=== PATIENT | female | born 1925 | race Caucasian/White ===

== ENCOUNTER 2016-09-29 16:18 | Inpatient (IN) | payer MEDICARE, OTHER ==
[2016-09-29] MEDS ORDERED: Sodium Chloride 0.9% 10 ML Syringe FLUSH PRN (17:18)
--- NOTE | 2016-09-29 17:22 | EDM.PDOC ---
ED HPI GENERAL MEDICAL PROBLEM - General Chief Complaint: Genitourinary Problem Stated Complaint: FALL Time Seen by Provider: 09/29/16 17:22 Source of Information: Reports: Family History Limitations: Reports: No Limitations - History of Present Illness INITIAL COMMENTS - FREE TEXT/NARRATIVE: 89-year-old female presents via private vehicle for increased weakness and confusion. Patient is a resident of [facility]. Reportedly she fell 3 times today. Once last night and 2 falls earlier today. Reportedly 2 of the falls were unwitnessed. Supposedly she fell onto her knees and then onto her palms after one of the falls. Patient is pleasantly demented and is not able to provide much history. She is currently denying any pain. She denies any chest pain, shortness of breath, abdominal pain, nausea, vomiting or diarrhea. The patient's daughter is present and confirms she has not been complaining of any pain. Complains of pain only to the bilateral knees which is chronic due to arthritis. Patient is a DO NOT RESUSCITATE, DO NOT INTUBATE. - Related Data Allergies Allergy/AdvReac Type Severity Reaction Status Date / Time Penicillins Allergy Other Verified 04/22/16 14:56 Home Meds: Home Meds Acetaminophen [Tylenol Extra Strength] 500 mg PO Q6HR PRN 09/29/16 [History] Alendronate [Fosamax] 70 mg PO Q7D@0600 09/29/16 [History] Aspirin [Halfprin] 81 mg PO BRK 09/29/16 [History] Calcium Carbonate/Vitamin D3 [Calcium 600 + Vit D 400 Softgl] 1 tab PO DAILY [History] Carvedilol 6.25 mg PO BID 09/29/16 [History] Clopidogrel [Plavix] 75 mg PO DAILY 09/29/16 [History] Docusate Sodium 100 mg PO BID 09/29/16 [History] Losartan [Cozaar] 100 mg PO DAILY 09/29/16 [History] Multivitamin [Multi-Vitamin Daily] 1 tab PO DAILY 09/29/16 [History] Omeprazole 20 mg PO DAILY 09/29/16 [History] Pravastatin [Pravachol] 40 mg PO DAILY 09/29/16 [History] Ranitidine HCl [Zantac 75] 75 mg PO BID PRN 09/29/16 [History] tiZANidine HCl [Tizanidine HCl] 4 mg PO Q8HR PRN 09/29/16 [History] traMADol HCl [Tramadol HCl] 50 mg PO Q6H PRN 09/29/16 [History] Past Medical History Cardiovascular History: Reports: High Cholesterol, Hypertension Gastrointestinal History: Reports: Chronic Constipation, GERD Musculoskeletal History: Reports: Osteoporosis, Other (See Below) Other Musculoskeletal History: sciatic pain on left and right sides Neurological History: Reports: CVA, TIA - Past Surgical History Female Surgical History: Reports: Hysterectomy Social & Family History - Tobacco Use Smoking Status *Q: Former Smoker Used Tobacco, but Quit: Yes Month Tobacco Last Used: 30 yrs - Caffeine Use Caffeine Use: Reports: Coffee - Recreational Drug Use Recreational Drug Use: No - Living Situation & Occupation Living situation: Reports: Extended Care Facility Occupation: Retired ED ROS GENERAL - Review of Systems Review Of Systems: See Below Constitutional: Reports: Weakness, Other (falls x 3 last 24 hours). Denies: Fever Respiratory: Denies: Shortness of Breath Cardiovascular: Denies: Chest Pain GI/Abdominal: Denies: Vomiting ED EXAM, GENERAL - Physical Exam Exam: See Below Exam Limited By: Other (dementia) General Appearance: Alert, WD/WN, No Apparent Distress Nose: Normal Inspection Throat/Mouth: Normal Inspection Head: Atraumatic, Normocephalic Neck: Normal Inspection, Supple, Non-Tender, Full Range of Motion Respiratory/Chest: No Respiratory Distress, Lungs Clear, Normal Breath Sounds Cardiovascular: Normal Peripheral Pulses, Regular Rate, Rhythm, No Murmur GI/Abdominal: Normal Bowel Sounds, Soft, Non-Tender (Female) Exam: Other (vulva that is very erythematous and swollen. ) Back Exam: Normal Inspection Extremities: Normal Inspection Neurological: Alert Skin Exam: Warm, Dry, Ecchymosis (Multiple yellow, healing bruises noted once the abdomen, one to the right lateral upper arm and the knees.) EKG INTERPRETATION EKG Date: 09/29/16 Time: 17:25 Rhythm: NSR Rate (beats/min): 90 Amorita: normal P-wave: present QRS: normal ST-T: normal QT: normal EKG Interpretation Comments: NSR at 90 bpm. LVH with strain (repolarization / abnormality V6). Reviewed by myself and Dr. Park. Course - Vital Signs Last Recorded V/S: Last Vital Signs Temp 37.4 C 09/29/16 16:43 Pulse 92 09/29/16 16:43 Resp 20 09/29/16 16:43 BP 188/81 H 09/29/16 16:43 Pulse Ox 91 L 09/29/16 16:43 - Orders/Labs/Meds Orders: Active Orders 24 hr Category Date Time Status Cardiac Monitoring [RC] . DIRECTED Care 09/29/16 17:15 Active EKG Documentation Completion [RC] STAT Care 09/29/16 17:15 Active Insert Oneil Catheter [Insert Urinary Catheter] [OM.PC] Care 09/29/16 16:35 Ordered Q24H Urinary Catheter Assessment [RC] ASDIRECTED Care 09/29/16 16:48 Active Chest 1V Frontal [CR] Stat Exams 09/29/16 17:15 Taken Knee Min 4V Lt [CR] Stat Exams 09/29/16 19:49 Taken Knee Min 4V Rt [CR] Stat Exams 09/29/16 19:49 Taken CULTURE BLOOD [BC] Stat Lab 09/29/16 18:32 Received CULTURE BLOOD [BC] Stat Lab 09/29/16 18:37 Received CULTURE URINE [RM] Stat Lab 09/29/16 16:49 Received METH-RESIST S.AUR,MRSA BY PCR [MOLEC] Routine Lab 09/29/16 21:21 Received Sodium Chloride 0.9% [Saline Flush] Med 09/29/16 17:18 Active 10 ml FLUSH ASDIRECTED PRN Blood Culture x2 Reflex Set [OM.PC] Stat Oth 09/29/16 18:21 Ordered Peripheral IV Insertion Adult [OM.PC] Routine Oth 09/29/16 17:18 Ordered Medication Orders Sodium Chloride (Saline Flush) 10 ml FLUSH ASDIRECTED PRN PRN Reason: Keep Vein Open Last Admin: 09/29/16 17:30 Dose: 10 ml Labs: Laboratory Tests 09/29/16 09/29/16 09/29/16 Range/Units 16:35 17:30 17:30 WBC 13.18 H (3.98-10.04) K/mm3 RBC 5.01 (3.98-5.22) M/mm3 Hgb 14.6 (11.2-15.7) gm/L Hct 44.7 (34.1-44.9) % MCV 89.2 (79.4-94.8) fl MCH 29.1 (25.6-32.2) pg MCHC 32.7 (32.2-35.5) g/dl RDW Std Deviation 47.4 H (36.4-46.3) fL Plt Count 225 (182-369) K/mm3 MPV 9.6 (9.4-12.3) fl Neutrophils % (Manual) 68 H (40-60) % Band Neutrophils % 2 (0-10) % Lymphocytes % (Manual) 20 (20-40) % Atypical Lymphs % 0 % Monocytes % (Manual) 9 (2-10) % Eosinophils % (Manual) 1 (0.7-5.8) % Basophils % (Manual) 0 L (0.1-1.2) Platelet Estimate Adequate RBC Morph Comment Normal PT 10.9 (8.0-13.0) SECONDS INR 1.00 APTT 26 (22-36) SECONDS Sodium (136-145) mEq/L Potassium (3.5-5.1) mEq/L Chloride (98-107) mEq/L Carbon Dioxide (21-32) mEq/L Anion Gap (5-15) BUN (7-18) mg/dL Creatinine (0.55-1.02) mg/dL Est Cr Clr Drug Dosing mL/min Estimated GFR (MDRD) (>60) mL/min BUN/Creatinine Ratio (14-18) Glucose (83-115) mg/dL Lactic Acid (0.4-2.0) mmol/L Calcium (8.5-10.1) mg/dL Total Bilirubin (0.2-1.0) mg/dL AST (15-37) U/L ALT (14-59) U/L Alkaline Phosphatase (46-116) U/L Troponin I (0.00-0.056) ng/mL C-Reactive Protein (<1.0) mg/dL Total Protein (6.4-8.2) g/dl Albumin (3.4-5.0) g/dl Globulin gm/dL Albumin/Globulin Ratio (1-2) Urine Color Yellow (Yellow) Urine Appearance Clear (Clear) Urine pH 6.5 (5.0-8.0) Ur Specific Portal 1.025 (1.005-1.030) Urine Protein 2+ H (Negative) Urine Glucose (UA) Negative (Negative) Urine Ketones 1+ H (Negative) Urine Occult Blood Negative (Negative) Urine Nitrite Negative (Negative) Urine Bilirubin Negative (Negative) Urine Urobilinogen 0.2 (0.2-1.0) Ur Leukocyte Esterase Negative (Negative) Urine RBC 0-5 (0-5) /hpf Urine WBC 0-5 (0-5) /hpf Ur Epithelial Cells 0-5 (0-5) /hpf Urine Bacteria Not seen (FEW) /hpf Urine Mucus Not seen (FEW) /hpf 09/29/16 09/29/16 Range/Units 17:30 18:32 WBC (3.98-10.04) K/mm3 RBC (3.98-5.22) M/mm3 Hgb (11.2-15.7) gm/L Hct (34.1-44.9) % MCV (79.4-94.8) fl MCH (25.6-32.2) pg MCHC (32.2-35.5) g/dl RDW Std Deviation (36.4-46.3) fL Plt Count (182-369) K/mm3 MPV (9.4-12.3) fl Neutrophils % (Manual) (40-60) % Band Neutrophils % (0-10) % Lymphocytes % (Manual) (20-40) % Atypical Lymphs % % Monocytes % (Manual) (2-10) % Eosinophils % (Manual) (0.7-5.8) % Basophils % (Manual) (0.1-1.2) Platelet Estimate RBC Morph Comment PT (8.0-13.0) SECONDS INR APTT (22-36) SECONDS Sodium 144 (136-145) mEq/L Potassium 3.6 (3.5-5.1) mEq/L Chloride 106 (98-107) mEq/L Carbon Dioxide 28 (21-32) mEq/L Anion Gap 13.6 (5-15) BUN 19 H (7-18) mg/dL Creatinine 0.9 (0.55-1.02) mg/dL Est Cr Clr Drug Dosing 37.31 mL/min Estimated GFR (MDRD) 59 (>60) mL/min BUN/Creatinine Ratio 21.1 H (14-18) Glucose 136 H (83-115) mg/dL Lactic Acid 0.9 (0.4-2.0) mmol/L Calcium 9.4 (8.5-10.1) mg/dL Total Bilirubin 0.8 (0.2-1.0) mg/dL AST 13 L (15-37) U/L ALT 19 (14-59) U/L Alkaline Phosphatase 96 (46-116) U/L Troponin I < 0.017 (0.00-0.056) ng/mL C-Reactive Protein 13.4 H* (<1.0) mg/dL Total Protein 8.0 (6.4-8.2) g/dl Albumin 3.8 (3.4-5.0) g/dl Globulin 4.2 gm/dL Albumin/Globulin Ratio 0.9 L (1-2) Urine Color (Yellow) Urine Appearance (Clear) Urine pH (5.0-8.0) Ur Specific Portal (1.005-1.030) Urine Protein (Negative) Urine Glucose (UA) (Negative) Urine Ketones (Negative) Urine Occult Blood (Negative) Urine Nitrite (Negative) Urine Bilirubin (Negative) Urine Urobilinogen (0.2-1.0) Ur Leukocyte Esterase (Negative) Urine RBC (0-5) /hpf Urine WBC (0-5) /hpf Ur Epithelial Cells (0-5) /hpf Urine Bacteria (FEW) /hpf Urine Mucus (FEW) /hpf Meds: Medications Generic Name Dose Route Start Last Admin Trade Name Freq PRN Reason Stop Dose Admin Sodium Chloride 10 ml 09/29/16 17:18 09/29/16 17:30 Saline Flush FLUSH 10 ml ASDIRECTED PRN Administration Keep Vein Open Discontinued Medications Generic Name Dose Route Start Last Admin Trade Name Freq PRN Reason Stop Dose Admin Ceftriaxone Sodium 2 gm/ 100 mls @ 200 mls/hr 09/29/16 18:23 09/29/16 19:16 Sodium Chloride IV 09/29/16 18:52 200 mls/hr ONETIME ONE Administration - Radiology Interpretation Free Text/Narrative:: Head CT without contrast impression per Dr. River 1. Senescent change as described. 2. Sinus finding felt to be incidental 3. nothing acute is identified on noncontrast head CT study. No significant changes seen from previous head CT exam. Chest xray shows no acute intrathoracic process. eEviewed by myself and Dr. Vivian. 4 view x-rays of bilateral knees show no acute fractures or dislocations. - Re-Assessments/Exams Free Text/Narrative Re-Assessment/Exam: 09/29/16 20:28 The patient's lab studies have returned. White blood cell count is elevated at 13.18 with 2 bands. Hgb is 14.6 and platelets are 225. PT is 10.9, INR is 1.00. PTT is 26. Sodium is 144, potassium 3.6 and chloride is 106. Glucose is 136. Lactic acid is 0.9. CRP is elevated at 13.4. Troponin is within normal limits at less than 0.017. UA shows 2+ protein and 1+ stones. Urine and blood cultures were sent. I discussed the lab results, EKG and imaging results with the patient's daughter. Given her acute decline causing weakness and increased confusion, I feel she would be best served with admission to the hospital. Daughter agrees. I have given the patient 2 g IV Rocephin to treat for a possible urinary tract infection or pneumonia. Her blood pressure has come down significantly without any intervention and her systolic is currently in the 160s. I discussed the case with Dr. Hernandez, hospitalist account classification clerk. He agrees to the admission. We will admit [facility] with telemetry for increased weakness and confusion. Departure - Departure Time of Disposition: 20:30 Disposition: Admitted As Inpatient 68 Condition: fair Clinical Impression: Weakness - Discharge Information Referrals: Shayan Mott MD [Primary Care Provider] - Forms: ED Department Discharge Additional Instructions: Patient admitted under Dr. Landrum for increased weakness and confusion. - My Orders Last 24 Hours: My Active Orders 09/29/16 16:35 Insert Oneil Catheter [Insert Urinary Catheter] [OM.PC] Q24H 09/29/16 16:48 Urinary Catheter Assessment [RC] ASDIRECTED 09/29/16 16:49 CULTURE URINE [RM] Stat 09/29/16 17:15 Cardiac Monitoring [RC] . DIRECTED EKG Documentation Completion [RC] STAT Chest 1V Frontal [CR] Stat 09/29/16 17:18 Sodium Chloride 0.9% [Saline Flush] 10 ml FLUSH ASDIRECTED PRN Peripheral IV Insertion Adult [OM.PC] Routine 09/29/16 18:21 Blood Culture x2 Reflex Set [OM.PC] Stat 09/29/16 18:32 CULTURE BLOOD [BC] Stat 09/29/16 18:37 CULTURE BLOOD [BC] Stat 09/29/16 19:49 Knee Min 4V Lt [CR] Stat Knee Min 4V Rt [CR] Stat - Assessment/Plan Last 24 Hours: My Active Orders 09/29/16 16:35 Insert Oneil Catheter [Insert Urinary Catheter] [OM.PC] Q24H 09/29/16 16:48 Urinary Catheter Assessment [RC] ASDIRECTED 09/29/16 16:49 CULTURE URINE [RM] Stat 09/29/16 17:15 Cardiac Monitoring [RC] . DIRECTED EKG Documentation Completion [RC] STAT Chest 1V Frontal [CR] Stat 09/29/16 17:18 Sodium Chloride 0.9% [Saline Flush] 10 ml FLUSH ASDIRECTED PRN Peripheral IV Insertion Adult [OM.PC] Routine 09/29/16 18:21 Blood Culture x2 Reflex Set [OM.PC] Stat 09/29/16 18:32 CULTURE BLOOD [BC] Stat 09/29/16 18:37 CULTURE BLOOD [BC] Stat 09/29/16 19:49 Knee Min 4V Lt [CR] Stat Knee Min 4V Rt [CR] Stat
[2016-09-29] MEDS ORDERED: cefTRIAXone 2 GM in Sodium Chloride 0.9% 100 ML IV ONE (18:23)
--- NOTE | 2016-09-29 19:02 | CT ---
Head CT Technique: Multiple axial sections through the brain were obtained. Intravenous contrast was not utilized. Comparison: Previous head CT study of 04/22/16. Findings: Ventricles along with basal cisterns and sulci over the convexities are moderately prominent. Diminished density is seen within the periventricular and subcortical white matter as well as within the basal ganglia compatible with small vessel ischemic demyelination change. No other abnormal parenchymal densities are seen. No evidence of intracranial hemorrhage. No midline shift or mass effect is seen. Bone window settings were reviewed which shows mucosal thickening within the superior right maxillary sinus which is chronic. No acute calvarial abnormality is appreciated. Impression: 1. Senescent change as described above. 2. Sinus findings felt to be incidental. 3. Nothing acute is identified on noncontrast head CT study. No significant change is seen from previous head CT exam. Diagnostic code #2
--- NOTE | 2016-09-29 21:54 | PCM.HP ---
H&P History of Present Illness - General Date of Service: 09/29/16 Admit Problem/Dx: AMS and Frequent Falls Source of Information: Patient, Half-Way Records, Old Records, Provider History Limitations: Reports: Altered Mental Status, Physical Impairment - History of Present Illness Initial Comments - Free Text/Narative: THis is an 89 yo elderly white female with past medical hx/o should hypercholesterolemia, chronic, constipation, GERD, osteoporosis, sciatica, history of CVA/TIA, who comes me in for evaluation of gently crispness and frequent falls. Patient is a local resident of [facility]. Read the notes. Patient had fallen unwitnessed 3 times a day. Vision is currently confused and unable to provide history of present illness.. she denies having a chest pain, shortness of breath, abdominal pain, nausea, vomiting, diarrhea, constipation. Her initial workup in emergency department, shows a CBC remarkable for WBC 13.1 , 8, and neutrophils of 60%. INR one, PT 10.9, APTT 26. Her chemistries remarkable for BUN of 19, BS of 136, AST of 13, C-reactive protein of 13.4. Urine culture shows, normal urinary tract infection. Chest x-ray shows increased central lung markings on the right hemithorax (awaiting formal report by radiology). No previous imaging study for comparison. Head CT scan report reads senescent change, sinus felt to be incidental, nothing acute is identified. Knee x-rays shows no acute fracture or dislocations (awaiting formal report from radiology). Patient was admitted for evaluation and management of progressive weakness, confusion and recurrent falls. Her CODE STATUS is DNR/DNI. - Related Data Allergies/Adverse Reactions: Allergies Allergy/AdvReac Type Severity Reaction Status Date / Time Penicillins Allergy Other Verified 04/22/16 14:56 Home Medications: Home Meds Acetaminophen [Tylenol Extra Strength] 500 mg PO Q6HR PRN 09/29/16 [History] Alendronate [Fosamax] 70 mg PO Q7D@0600 09/29/16 [History] Aspirin [Halfprin] 81 mg PO BRK 09/29/16 [History] Calcium Carbonate/Vitamin D3 [Calcium 600 + Vit D 400 Softgl] 1 tab PO DAILY [History] Carvedilol 6.25 mg PO BID 09/29/16 [History] Clopidogrel [Plavix] 75 mg PO DAILY 09/29/16 [History] Docusate Sodium 100 mg PO BID 09/29/16 [History] Losartan [Cozaar] 100 mg PO DAILY 09/29/16 [History] Multivitamin [Multi-Vitamin Daily] 1 tab PO DAILY 09/29/16 [History] Omeprazole 20 mg PO DAILY 09/29/16 [History] Pravastatin [Pravachol] 40 mg PO DAILY 09/29/16 [History] Ranitidine HCl [Zantac 75] 75 mg PO BID PRN 09/29/16 [History] tiZANidine HCl [Tizanidine HCl] 4 mg PO Q8HR PRN 09/29/16 [History] traMADol HCl [Tramadol HCl] 50 mg PO Q6H PRN 09/29/16 [History] Past Medical History Cardiovascular History: Reports: High Cholesterol, Hypertension Gastrointestinal History: Reports: Chronic Constipation, GERD Musculoskeletal History: Reports: Osteoporosis, Other (See Below) Other Musculoskeletal History: sciatic pain on left and right sides Neurological History: Reports: CVA, TIA - Past Surgical History Female Surgical History: Reports: Hysterectomy Social & Family History - Tobacco Use Smoking Status *Q: Former Smoker Used Tobacco, but Quit: Yes Month Tobacco Last Used: 30 yrs - Caffeine Use Caffeine Use: Reports: Coffee - Recreational Drug Use Recreational Drug Use: No - Living Situation & Occupation Living situation: Reports: Extended Care Facility Occupation: Retired H&P Review of Systems - Review of Systems: Review Of Systems: See Below General: Reports: Weakness. Denies: Fever, Chills, Fatigue, Decreased Appetite HEENT: Reports: No Symptoms Pulmonary: Denies: Shortness of Breath, Wheezing, Pleuritic Chest Pain Cardiovascular: Denies: Chest Pain, Palpitations, Dyspnea on Exertion, Edema, Lightheadedness Gastrointestinal: Denies: Abdominal Pain, Nausea, Vomiting Genitourinary: Reports: No Symptoms Musculoskeletal: Reports: Joint Pain Skin: Denies: Cyanosis, Pallor, Erythema, Wound, Lesions Psychiatric: Denies: Confusion, Depression, Hallucinations Neurological: Reports: Difficulty Walking, Weakness, Gait Disturbance. Denies: Confusion Hematologic/Lymphatic: Reports: No Symptoms Immunologic: Reports: No Symptoms Exam - Exam Exam: See Below - Vital Signs Vital Signs: Last Vital Signs Temp 37.4 C 09/29/16 16:43 Pulse 92 09/29/16 16:43 Resp 20 09/29/16 16:43 BP 188/81 H 09/29/16 16:43 Pulse Ox 91 L 09/29/16 16:43 Weight: 65.317 kg - Exam General: Alert, Cooperative, Mild Distress HEENT: EACs Clear, Hearing Intact, Nares Patent, Normal Nasal Septum, Posterior Pharynx Clear, Pupils Equal, Pupils Reactive Neck: Supple, Trachea Midline, +2 Carotid Pulse wo Bruit. No: Full Range of Motion Lungs: Clear to Auscultation, Normal Respiratory Effort Cardiovascular: Regular Rate, Regular Rhythm Abdomen: Normal Bowel Sounds. No: Organomegaly, Tenderness (Female) Exam: Deferred Rectal (Female) Exam: Deferred Back Exam: Normal Inspection, Decreased Range of Motion Extremities: Normal Inspection, Normal Pulses. No: Cyanosis, Calf Tenderness, Edema Peripheral Pulses: 2+: Posterior Tibial (L), Posterior Tibial (R), Dorsalis Pedis (L), Dorsalis Pedis (R) Skin: Warm, Dry, Intact, Ecchymosis, Other (multiple bruising in the body) Neuro Extensive - Mental Status: Normal Cognition, Memory Intact. No: Oriented x3 Neuro Extensive - Motor, Sensory, Reflexes: CN II-XII Intact (limited exam but fairly intact), Abnormal Gait Psychiatric: Alert, Normal Affect, Normal Mood - Patient Data Result Diagrams: 09/30/16 05:58 09/30/16 05:58 EKG INTERPRETATION EKG Date: 09/29/16 Time: 17:25 Rhythm: NSR Rate (beats/min): 90 Mcdonald: normal P-wave: present QRS: normal ST-T: normal QT: normal EKG Interpretation Comments: LV Strain *Q Meaningful Use (ADM) - VTE *Q VTE Criteria *Q: - Stroke *Q Stroke Criteria *Q: - AMI *Q AMI Criteria *Q: Problem List Initiated/Reviewed/Updated: Yes Orders Last 24hrs: Active Orders 24 hr Category Date Time Status METH-RESIST S.AUR,MRSA BY PCR [MOLEC] Routine Lab 09/29/16 21:21 Received Medication Orders Sodium Chloride (Saline Flush) 10 ml FLUSH ASDIRECTED PRN PRN Reason: Keep Vein Open Last Admin: 09/29/16 17:30 Dose: 10 ml Assessment/Plan Comment:: Assessment/Plan: Acute: Encephalopathy/AMS - Likely 2/2 Toxic/metabolic Encephalopathy - CXR and UA not impressive for infection - She has medications that can induced alteration: Tramadol and Tizanidine - Close monitoring Frequent Falls - Likely generalized Weakness - Thyroid Panel and D Level - PT/OT to assess: gait, balance, stability and ambulation Leukoctyosis - WBC 13.18 - CRP is 13.4-likely from stress: no clear source at this time Worsening Memory Impairment (Query) - Incomplete records from [facility] - ED notes, states she has Dementia Chronic: HTN HLD GERD OA Osteoporosis Chronic Constipation Sciatica Hx/o CVA/TIA Plan: Admit to the floor Resume Home Meds except narcs or any mind altering drugs Close monitoring Routine AM Labs High Risk Fall PT/OT consult SW/CM for d/c planning Possible SNF/NH placement Code status: DNR/DNI
[2016-09-29] MEDS ORDERED: Bisacodyl 5 MG Tab PO PRN (22:16)
[2016-09-29] MEDS ORDERED: Promethazine 12.5 MG in Sodium Chloride 0.9% 50 ML IV PRN (22:16)
[2016-09-29] MEDS ORDERED: Docusate Sodium 100 MG Cap PO PRN (22:16)
[2016-09-29] MEDS ORDERED: HYDROmorphone 0.5 MG/0.5 ML Syringe IVPUSH PRN (22:16)
[2016-09-29] MEDS ORDERED: Acetaminophen/HYDROcodone 325-5 MG Tab PO PRN (22:16)
[2016-09-29] MEDS ORDERED: Polyethylene Glycol 3350 Powder 17 GM Packet PO PRN (22:16)
[2016-09-29] MEDS ORDERED: Acetaminophen 325 MG Tab PO PRN (22:16)
[2016-09-29] MEDS ORDERED: Temazepam 15 MG Cap PO PRN (22:16)
[2016-09-29] MEDS ORDERED: Albuterol/Ipratropium 3.0-0.5 MG/3 ML Neb Soln NEB PRN (22:16)
[2016-09-29] MEDS ORDERED: LORazepam 2 MG/ML MDV IV PRN (22:16)
[2016-09-29] MEDS ORDERED: Ondansetron 4 MG/2 ML SDV IV PRN (22:16)
[2016-09-29] MEDS ORDERED: Non-Formulary Medication 1 Each (Acetaminophen 500 MG) PO PRN (22:21)
[2016-09-29] MEDS ORDERED: Metoprolol Tartrate 5 MG/5 ML SDV IVPUSH PRN (22:52)
[2016-09-29] MEDS ORDERED: hydrALAZINE 20 MG/ML SDV IVPUSH PRN (22:52)
[2016-09-29] MEDS ORDERED: Bumetanide 1 MG/4 ML MDV IVPUSH ONE (23:00)
[2016-09-29] MEDS: Aspirin 81 MG Tab.EC PO SCH (23:54)
[2016-09-29] MEDS: Docusate Sodium 100 MG Cap PO SCH (23:55)
[2016-09-29] MEDS: Enoxaparin 40 MG/0.4 ML Syringe SUBCUT SCH (23:55)
[2016-09-30] MEDS: Dextrose 5%-0.45% NaCl 1,000 ML IV SCH ×2 (00:20→14:28)
[2016-09-30] MEDS: Pantoprazole 40 MG Tab.CR PO SCH ×2 (05:52→08:07)
[2016-09-30] MEDS: Aspirin 81 MG Tab.EC PO SCH ×2 (05:52→08:06)
[2016-09-30] MEDS ORDERED: Temazepam 7.5 MG Cap PO PRN (08:10)
[2016-09-30] MEDS: Docusate Sodium 100 MG Cap PO SCH ×2 (10:18→22:09)
[2016-09-30] MEDS: Multivitamins,Therapeutic Tab PO SCH (10:18)
[2016-09-30] MEDS: Losartan 100 MG Tab PO SCH (10:18)
[2016-09-30] MEDS: amLODIPine 5 MG Tab PO SCH (10:18)
[2016-09-30] MEDS: Enoxaparin 40 MG/0.4 ML Syringe SUBCUT SCH (10:18)
[2016-09-30] MEDS: Carvedilol 6.25 MG Tab PO SCH ×2 (10:19→22:09)
[2016-09-30] MEDS: Clopidogrel 75 MG Tab PO SCH (10:19)
[2016-09-30] MEDS: Calcium Carbonate/Vitamin D3 1500 MG-200 Units Tab PO SCH (10:19)
--- NOTE | 2016-09-30 10:37 | PCM.PN ---
- General Info Date of Service: 09/30/16 Functional Status: Reports: tolerating diet, urinating - Review of Systems General: Reports: Weakness HEENT: Reports: no symptoms Pulmonary: Reports: no symptoms Cardiovascular: Reports: No Symptoms Gastrointestinal: Reports: No symptoms Genitourinary: Reports: no symptoms Musculoskeletal: Reports: no symptoms Skin: Reports: no symptoms Neurological: Reports: No Symptoms Psychiatric: Reports: no symptoms - Patient Data Vitals - most recent: Last Vital Signs Temp 36.7 C 09/30/16 03:10 Pulse 76 09/30/16 10:19 Resp 18 09/30/16 03:10 BP 126/96 H 09/30/16 10:19 Pulse Ox 96 09/30/16 03:10 Weight - most recent: 65.317 kg I&O - last 24 hours: Intake & Output 09/29/16 09/30/16 09/30/16 22:59 06:59 14:59 Intake Total 405 Balance 405 Lab Results last 24 hrs: Laboratory Results - last 24 hr 09/29/16 09/30/16 09/30/16 Range/Units 21:21 05:58 05:58 WBC 8.78 (3.98-10.04) K/mm3 RBC 4.60 (3.98-5.22) M/mm3 Hgb 13.5 (11.2-15.7) gm/L Hct 40.9 (34.1-44.9) % MCV 88.9 (79.4-94.8) fl MCH 29.3 (25.6-32.2) pg MCHC 33.0 (32.2-35.5) g/dl RDW Std Deviation 47.1 H (36.4-46.3) fL Plt Count 228 (182-369) K/mm3 MPV 10.2 (9.4-12.3) fl Neut % (Auto) 60.0 (34.0-71.1) % Lymph % (Auto) 17.8 L (19.3-51.7) % [place] % (Auto) 20.5 H (4.7-12.5) % Eos % (Auto) 1.1 (0.7-5.8) Baso % (Auto) 0.3 (0.1-1.2) % Neut # (Auto) 5.26 (1.56-6.13) K/mm3 Lymph # (Auto) 1.56 (1.18-3.74) K/mm3 [place] # (Auto) 1.80 H (0.24-0.36) K/mm3 Eos # (Auto) 0.10 (0.04-0.36) K/mm3 Baso # (Auto) 0.03 (0.01-0.08) K/mm3 Manual Slide Review Normal smear Sodium 140 (136-145) mEq/L Potassium 3.0 L (3.5-5.1) mEq/L Chloride 104 (98-107) mEq/L Carbon Dioxide 25 (21-32) mEq/L Anion Gap 14.0 (5-15) BUN 17 (7-18) mg/dL Creatinine 0.8 (0.55-1.02) mg/dL Est Cr Clr Drug Dosing 41.97 mL/min Estimated GFR (MDRD) > 60 (>60) mL/min BUN/Creatinine Ratio 21.3 H (14-18) Glucose 116 H (83-115) mg/dL Calcium 8.4 L (8.5-10.1) mg/dL Magnesium 1.8 (1.8-2.4) mg/dl C-Reactive Protein 17.5 H* (<1.0) mg/dL Free T4 1.04 (0.76-1.46) ng/dL TSH 3rd Generation 2.584 (0.358-3.74) uIU/mL MRSA (PCR) Negative Med Orders - Current: Current Medications Acetaminophen (Tylenol) 650 mg PO Q4H PRN PRN Reason: Pain (Mild 1-3)/fever Hydrocodone Bitart/Acetaminophen ([place] 325-5 Mg) 1 tab PO Q4H PRN PRN Reason: Pain (moderate 4-6) Last Admin: 09/30/16 00:22 Dose: 1 tab Albuterol/Ipratropium (Duoneb 3.0-0.5 Mg/3 Ml) 3 ml NEB Q4H PRN PRN Reason: Shortness Of Breath/wheezing Amlodipine Besylate (Norvasc) 5 mg PO DAILY [facility] Last Admin: 09/30/16 10:18 Dose: 5 mg Aspirin (Halfprin) 81 mg PO BRK [facility] Last Admin: 09/30/16 08:06 Dose: Not Given Bisacodyl (Dulcolax) 5 mg PO DAILY PRN PRN Reason: Constipation Calcium Carbonate (Calcium Carbonate/Vitamin D 1500 Mg-200 Unit) 1 tab PO DAILY [facility] Last Admin: 09/30/16 10:19 Dose: 1 tab Carvedilol (Coreg) 6.25 mg PO BID [facility] Last Admin: 09/30/16 10:19 Dose: 6.25 mg Clopidogrel Bisulfate (Plavix) 75 mg PO DAILY [facility] Last Admin: 09/30/16 10:19 Dose: 75 mg Docusate Sodium (Colace) 100 mg PO BID PRN PRN Reason: Constipation Docusate Sodium (Colace) 100 mg PO BID [facility] Last Admin: 09/30/16 10:18 Dose: 100 mg Enoxaparin Sodium (Lovenox) 40 mg SUBCUT DAILY [facility] Last Admin: 09/30/16 10:18 Dose: 40 mg Famotidine (Pepcid) 20 mg PO BID PRN PRN Reason: Heartburn Hydralazine HCl (Apresoline) 10 mg IVPUSH Q4H PRN PRN Reason: Hypertension Last Admin: 09/30/16 00:21 Dose: 10 mg Hydromorphone HCl (Dilaudid) 0.25 mg IVPUSH Q2H PRN PRN Reason: Pain (severe 7-10) Dextrose/Sodium Chloride (Dextrose 5%-1/2 Ns) 1,000 mls @ 75 mls/hr IV ASDIRECTED [facility] Last Admin: 09/30/16 00:20 Dose: 75 mls/hr Promethazine HCl 12.5 mg/ (Sodium Chloride) 50.5 mls @ 100 mls/hr IV Q6H PRN PRN Reason: Nausea/Vomiting Lorazepam (Ativan) 0.25 mg IV Q6H PRN PRN Reason: Anxiety Losartan Potassium (Cozaar) 100 mg PO DAILY [facility] Last Admin: 09/30/16 10:18 Dose: 100 mg Magnesium Sulfate (Pharmacy To Dose - Magnesium Replacement) 0 dose .XX ASDIRECTED PRN PRN Reason: RX TO MONITOR MAG LEVELS Metoprolol Tartrate (Lopressor) 2.5 mg IVPUSH Q4H PRN PRN Reason: Tachycardia Multivitamins (Thera) 1 each PO DAILY [facility] Last Admin: 09/30/16 10:18 Dose: 1 each Ondansetron HCl (Zofran) 4 mg IV Q6H PRN PRN Reason: Nausea/Vomiting Pantoprazole Sodium (Protonix) 40 mg PO DAILY@0700 [facility] Last Admin: 09/30/16 08:07 Dose: Not Given Polyethylene Glycol (Miralax) 17 gm PO DAILY PRN PRN Reason: Constipation Potassium Chloride (Pharmacy To Dose - Potassium Replacement) 0 dose .XX ASDIRECTED PRN PRN Reason: RX TO MONITOR K LEVELS Senna/Docusate Sodium (Senna Plus) 1 tab PO BID PRN PRN Reason: Constipation Simvastatin (Zocor) 20 mg PO BEDTIME [facility] Temazepam (Restoril) 7.5 mg PO BEDTIME PRN PRN Reason: Sleep Discontinued Medications Bumetanide (Bumex) 0.5 mg IVPUSH ONETIME ONE Stop: 09/29/16 23:01 Last Admin: 09/29/16 23:55 Dose: 0.5 mg Ceftriaxone Sodium 2 gm/ (Sodium Chloride) 100 mls @ 200 mls/hr IV ONETIME ONE Stop: 09/29/16 18:52 Last Admin: 09/29/16 19:16 Dose: 200 mls/hr Non-Formulary Medication (Acetaminophen) 500 mg PO Q6HR PRN PRN Reason: Pain Non-Formulary Medication (Alendronate) 70 mg PO Q7D@0600 [facility] Sodium Chloride (Saline Flush) 10 ml FLUSH ASDIRECTED PRN PRN Reason: Keep Vein Open Last Admin: 09/29/16 17:30 Dose: 10 ml Temazepam (Restoril) 7.5 mg PO BEDTIME PRN PRN Reason: Sleep - Exam Quality Assessment: supplemental oxygen, DVT prophylaxis General: alert, oriented, no acute distress HEENT: Pupils equal, Pupils reactive, EOMI Neck: supple Lungs: Normal respiratory effort Cardiovascular: Regular Rate Abdomen: bowel sounds present, soft, no tenderness, no distension (Female) Exam: Deferred Back Exam: Normal Inspection Extremities: normal pulses Skin: warm Neurological: no new focal deficit Psy/Mental Status: alert - Problem List Review Problem List Initiated/Reviewed/Updated: Yes - Plan Plan:: Assessment/Plan: Acute: Encephalopathy/AMS - Likely 2/2 Toxic/metabolic Encephalopathy - CXR and UA not impressive for infection - She has medications that can induced alteration: Tramadol and Tizanidine - Close monitoring Frequent Falls - Likely generalized Weakness - Thyroid Panel and D Level - PT/OT to assess: gait, balance, stability and ambulation Leukoctyosis - WBC 13.18 - CRP is 13.4-likely from stress: no clear source at this time Worsening Memory Impairment (Query) - Incomplete records from [place] - ED notes, states she has Dementia Chronic: HTN HLD GERD OA Osteoporosis Chronic Constipation Sciatica Hx/o CVA/TIA Plan: Admit to the floor Resume Home Meds except narcs or any mind altering drugs Close monitoring Routine AM Labs High Risk Fall PT/OT consult SW/CM for d/c planning Possible SNF/NH placement Code status: DNR/DNI
[2016-09-30] MEDS: Potassium Chloride 10% 20 MEQ/15 ML Soln 15 ML UD Cup PO SCH ×2 (13:47→22:08)
--- NOTE | 2016-09-30 15:33 | CR ---
Chest: Portable view of the chest was obtained. Comparison: No previous chest x-ray is available. Heart is enlarged. Tortuous thoracic aorta is seen. I do not believe any acute infiltrates are present within the lungs. Bony structures are osteopenic. Mild degenerative change is seen within the right shoulder. Calcification noted above the left humerus which is felt compatible with calcification within the rotator cuff. Previous vertebroplasty is noted within the upper lumbar spine. Impression: 1. Findings as noted above. Nothing acute is appreciated. Diagnostic code #2
--- NOTE | 2016-09-30 15:33 | CR ---
Left knee: Four views of the left knee were obtained. Comparison: No previous knee exam. Slight chondrocalcinosis is noted within the medial and lateral menisci. Minimal osteophyte is noted off the medial tibial margin. No joint effusion is seen. No acute fracture or other bony abnormality is identified. Impression: 1. Chondrocalcinosis and minimal degenerative change. Diagnostic code #3
--- NOTE | 2016-09-30 15:33 | CR ---
Right knee: Four views of the right knee were obtained. Comparison: No previous right knee study. Chondrocalcinosis noted within the menisci. Medial and lateral joint spaces are preserved. No fracture or dislocation is seen. No joint effusion is appreciated. Slight vascular calcification is present. Impression: 1. Chondrocalcinosis and mild vascular calcification. Diagnostic code #3
[2016-09-30] MEDS ORDERED: Famotidine 20 MG Tab PO PRN (21:00)
[2016-09-30] MEDS: Simvastatin 20 MG Tab PO SCH (22:09)
[2016-10-01] MEDS ORDERED: Pneumococcal Polyvalent-23 Vaccine 0.5 ML SDV IM ONE (01:00)
[2016-10-01] MEDS: Dextrose 5%-0.45% NaCl 1,000 ML IV SCH (04:50)
[2016-10-01] MEDS: Pantoprazole 40 MG Tab.CR PO SCH (06:14)
[2016-10-01] MEDS: Aspirin 81 MG Tab.EC PO SCH (06:14)
[2016-10-01] MEDS: Enoxaparin 40 MG/0.4 ML Syringe SUBCUT SCH (08:19)
[2016-10-01] MEDS: Potassium Chloride 10% 20 MEQ/15 ML Soln 15 ML UD Cup PO SCH ×2 (08:19→20:24)
[2016-10-01] MEDS: Calcium Carbonate/Vitamin D3 1500 MG-200 Units Tab PO SCH (08:23)
[2016-10-01] MEDS: amLODIPine 5 MG Tab PO SCH (08:23)
[2016-10-01] MEDS: Multivitamins,Therapeutic Tab PO SCH (08:23)
[2016-10-01] MEDS: Clopidogrel 75 MG Tab PO SCH (08:23)
[2016-10-01] MEDS: Carvedilol 6.25 MG Tab PO SCH ×2 (08:24→20:24)
[2016-10-01] MEDS: Losartan 100 MG Tab PO SCH (08:25)
[2016-10-01] MEDS: Docusate Sodium 100 MG Cap PO SCH ×2 (08:25→20:27)
[2016-10-01] MEDS ORDERED: Magnesium Sulfate/Water 2 GM in Premix Bag 1 BAG IV ONE (09:29)
--- NOTE | 2016-10-01 11:57 | CR ---
Chest: Portable view of the chest was obtained. Comparison: Previous chest x-ray of 09/29/16. Heart is enlarged. Tortuous thoracic aorta is seen. Slightly prominent right superior mediastinum is seen which appears to be chronic. Lung markings are mildly increased which appears slightly more prominent on the right side possibly due to mild bronchitis. Lungs otherwise are clear. Bony structures are osteopenic. Previous vertebroplasty is noted within the upper lumbar spine. Scoliosis and degenerative change is partially visualized within the spine. Impression: 1. Increasing lung markings on the right side from prior exam possibly due to bronchitis. Please correlate if patient has correlating symptoms. 2. Other findings as described above which appears stable. Diagnostic code #3
--- NOTE | 2016-10-01 12:41 | PCM.PN ---
- General Info Date of Service: 10/01/16 Functional Status: Reports: pain controlled, tolerating diet, urinating - Review of Systems General: Reports: No Symptoms HEENT: Reports: no symptoms Pulmonary: Reports: no symptoms Cardiovascular: Reports: No Symptoms Gastrointestinal: Reports: No symptoms Genitourinary: Reports: no symptoms Musculoskeletal: Reports: no symptoms Skin: Reports: no symptoms Neurological: Reports: No Symptoms Psychiatric: Reports: no symptoms - Patient Data Vitals - most recent: Last Vital Signs Temp 36.7 C 10/01/16 07:55 Pulse 78 10/01/16 08:24 Resp 20 10/01/16 07:55 BP 117/82 10/01/16 08:25 Pulse Ox 94 L 10/01/16 07:55 Weight - most recent: 67.273 kg I&O - last 24 hours: Intake & Output 09/30/16 10/01/16 10/01/16 22:59 06:59 14:59 Intake Total 1780 1356 60 Output Total 550 Balance 1230 1356 60 Lab Results last 24 hrs: Laboratory Results - last 24 hr 10/01/16 10/01/16 10/01/16 Range/Units 06:07 06:07 10:50 WBC 10.79 H (3.98-10.04) K/mm3 RBC 4.49 (3.98-5.22) M/mm3 Hgb 13.1 (11.2-15.7) gm/L Hct 40.4 (34.1-44.9) % MCV 90.0 (79.4-94.8) fl MCH 29.2 (25.6-32.2) pg MCHC 32.4 (32.2-35.5) g/dl RDW Std Deviation 47.8 H (36.4-46.3) fL Plt Count 226 (182-369) K/mm3 MPV 10.3 (9.4-12.3) fl Neut % (Auto) 69.6 (34.0-71.1) % Lymph % (Auto) 10.0 L (19.3-51.7) % [place] % (Auto) 17.4 H (4.7-12.5) % Eos % (Auto) 2.5 (0.7-5.8) Baso % (Auto) 0.2 (0.1-1.2) % Neut # (Auto) 7.51 H (1.56-6.13) K/mm3 Lymph # (Auto) 1.08 L (1.18-3.74) K/mm3 [place] # (Auto) 1.88 H (0.24-0.36) K/mm3 Eos # (Auto) 0.27 (0.04-0.36) K/mm3 Baso # (Auto) 0.02 (0.01-0.08) K/mm3 Manual Slide Review Normal smear Sodium 139 (136-145) mEq/L Potassium 4.3 (3.5-5.1) mEq/L Chloride 107 (98-107) mEq/L Carbon Dioxide 23 (21-32) mEq/L Anion Gap 13.3 (5-15) BUN 19 H (7-18) mg/dL Creatinine 0.8 (0.55-1.02) mg/dL Est Cr Clr Drug Dosing 41.97 mL/min Estimated GFR (MDRD) > 60 (>60) mL/min BUN/Creatinine Ratio 23.8 H (14-18) Glucose 125 H (83-115) mg/dL Calcium 8.5 (8.5-10.1) mg/dL Magnesium 1.8 (1.8-2.4) mg/dl Urine Color Light yellow (Yellow) Urine Appearance Clear (Clear) Urine pH 6.0 (5.0-8.0) Ur Specific [place] 1.010 (1.005-1.030) Urine Protein Negative (Negative) Urine Glucose (UA) Trace H (Negative) Urine Ketones Negative (Negative) Urine Occult Blood Negative (Negative) Urine Nitrite Negative (Negative) Urine Bilirubin Negative (Negative) Urine Urobilinogen 0.2 (0.2-1.0) Ur Leukocyte Esterase Negative (Negative) Urine RBC 0-5 (0-5) /hpf Urine WBC 0-5 (0-5) /hpf Ur Epithelial Cells 0-5 (0-5) /hpf Urine Bacteria Rare (FEW) /hpf Urine Mucus Not seen (FEW) /hpf Med Orders - Current: Current Medications Acetaminophen (Tylenol) 650 mg PO Q4H PRN PRN Reason: Pain (Mild 1-3)/fever Hydrocodone Bitart/Acetaminophen ([place] 325-5 Mg) 1 tab PO Q4H PRN PRN Reason: Pain (moderate 4-6) Last Admin: 09/30/16 00:22 Dose: 1 tab Albuterol/Ipratropium (Duoneb 3.0-0.5 Mg/3 Ml) 3 ml NEB Q4H PRN PRN Reason: Shortness Of Breath/wheezing Amlodipine Besylate (Norvasc) 5 mg PO DAILY [facility] Last Admin: 10/01/16 08:23 Dose: 5 mg Aspirin (Halfprin) 81 mg PO BRK [facility] Last Admin: 10/01/16 06:14 Dose: 81 mg Bisacodyl (Dulcolax) 5 mg PO DAILY PRN PRN Reason: Constipation Calcium Carbonate (Calcium Carbonate/Vitamin D 1500 Mg-200 Unit) 1 tab PO DAILY [facility] Last Admin: 10/01/16 08:23 Dose: 1 tab Carvedilol (Coreg) 6.25 mg PO BID [facility] Last Admin: 10/01/16 08:24 Dose: 6.25 mg Clopidogrel Bisulfate (Plavix) 75 mg PO DAILY [facility] Last Admin: 10/01/16 08:23 Dose: 75 mg Docusate Sodium (Colace) 100 mg PO BID PRN PRN Reason: Constipation Docusate Sodium (Colace) 100 mg PO BID [facility] Last Admin: 10/01/16 08:25 Dose: 100 mg Enoxaparin Sodium (Lovenox) 40 mg SUBCUT DAILY [facility] Last Admin: 10/01/16 08:19 Dose: 40 mg Famotidine (Pepcid) 20 mg PO BID PRN PRN Reason: Heartburn Hydralazine HCl (Apresoline) 10 mg IVPUSH Q4H PRN PRN Reason: Hypertension Last Admin: 09/30/16 00:21 Dose: 10 mg Hydromorphone HCl (Dilaudid) 0.25 mg IVPUSH Q2H PRN PRN Reason: Pain (severe 7-10) Promethazine HCl 12.5 mg/ (Sodium Chloride) 50.5 mls @ 100 mls/hr IV Q6H PRN PRN Reason: Nausea/Vomiting Lorazepam (Ativan) 0.25 mg IV Q6H PRN PRN Reason: Anxiety Losartan Potassium (Cozaar) 100 mg PO DAILY [facility] Last Admin: 10/01/16 08:25 Dose: 100 mg Metoprolol Tartrate (Lopressor) 2.5 mg IVPUSH Q4H PRN PRN Reason: Tachycardia Multivitamins (Thera) 1 each PO DAILY [facility] Last Admin: 10/01/16 08:23 Dose: 1 each Ondansetron HCl (Zofran) 4 mg IV Q6H PRN PRN Reason: Nausea/Vomiting Pantoprazole Sodium (Protonix) 40 mg PO DAILY@0700 [facility] Last Admin: 10/01/16 06:14 Dose: 40 mg Polyethylene Glycol (Miralax) 17 gm PO DAILY PRN PRN Reason: Constipation Potassium Chloride (Potassium Chloride Solution) 40 meq PO BID [facility] Stop: 10/01/16 21:01 Last Admin: 10/01/16 08:19 Dose: 40 meq Senna/Docusate Sodium (Senna Plus) 1 tab PO BID PRN PRN Reason: Constipation Simvastatin (Zocor) 20 mg PO BEDTIME [facility] Last Admin: 09/30/16 22:09 Dose: 20 mg Temazepam (Restoril) 7.5 mg PO BEDTIME PRN PRN Reason: Sleep Discontinued Medications Bumetanide (Bumex) 0.5 mg IVPUSH ONETIME ONE Stop: 09/29/16 23:01 Last Admin: 09/29/16 23:55 Dose: 0.5 mg Ceftriaxone Sodium 2 gm/ (Sodium Chloride) 100 mls @ 200 mls/hr IV ONETIME ONE Stop: 09/29/16 18:52 Last Admin: 09/29/16 19:16 Dose: 200 mls/hr Dextrose/Sodium Chloride (Dextrose 5%-1/2 Ns) 1,000 mls @ 75 mls/hr IV ASDIRECTED [facility] Last Admin: 10/01/16 04:50 Dose: 75 mls/hr Magnesium Sulfate 2 gm/ Premix 50 mls @ 25 mls/hr IV ONETIME ONE Stop: 10/01/16 11:28 Last Admin: 10/01/16 10:02 Dose: 25 mls/hr Magnesium Sulfate (Pharmacy To Dose - Magnesium Replacement) 0 dose .XX ASDIRECTED PRN PRN Reason: RX TO MONITOR MAG LEVELS Non-Formulary Medication (Acetaminophen) 500 mg PO Q6HR PRN PRN Reason: Pain Non-Formulary Medication (Alendronate) 70 mg PO Q7D@0600 [facility] Pneumococcal Polyvalent Vaccine (Pneumovax 23) 0.5 ml IM .ONCE ONE Stop: 10/01/16 01:01 Potassium Chloride (Pharmacy To Dose - Potassium Replacement) 0 dose .XX ASDIRECTED PRN PRN Reason: RX TO MONITOR K LEVELS Sodium Chloride (Saline Flush) 10 ml FLUSH ASDIRECTED PRN PRN Reason: Keep Vein Open Last Admin: 09/29/16 17:30 Dose: 10 ml Temazepam (Restoril) 7.5 mg PO BEDTIME PRN PRN Reason: Sleep - Exam Quality Assessment: DVT prophylaxis General: alert, oriented, no acute distress HEENT: Pupils equal, Pupils reactive Lungs: Normal respiratory effort Cardiovascular: Regular Rate Abdomen: bowel sounds present, soft, no tenderness, no distension (Female) Exam: Deferred Back Exam: Normal Inspection Extremities: normal pulses Skin: warm Neurological: no new focal deficit Psy/Mental Status: alert - Problem List Review Problem List Initiated/Reviewed/Updated: Yes - My Orders Last 24 Hours: My Active Orders 09/30/16 12:45 Potassium Chloride [Potassium Chloride Solution] 40 meq PO BID 10/01/16 05:48 EKG 12 Lead [EKG Documentation Completion] [RC] STAT - Plan Plan:: Assessment/Plan: Acute: Encephalopathy/AMS - Likely 2/2 Toxic/metabolic Encephalopathy - CXR and UA not impressive for infection - She has medications that can induced alteration: Tramadol and Tizanidine - Close monitoring Frequent Falls - Likely generalized Weakness - Thyroid Panel and D Level - PT/OT to assess: gait, balance, stability and ambulation Leukoctyosis - WBC 13.18 - CRP is 13.4-likely from stress: no clear source at this time Worsening Memory Impairment (Query) - Incomplete records from [place] - ED notes, states she has Dementia Chronic: HTN HLD GERD OA Osteoporosis Chronic Constipation Sciatica Hx/o CVA/TIA Plan: Admit to the floor Resume Home Meds except narcs or any mind altering drugs Close monitoring Routine AM Labs High Risk Fall PT/OT consult SW/CM for d/c planning Possible SNF/NH placement Code status: DNR/DNI
[2016-10-01] MEDS ORDERED: Levofloxacin/Dextrose 5%-Water 750 MG in Premix Bag 1 BAG IV SCH (16:00)
[2016-10-01] MEDS: Simvastatin 20 MG Tab PO SCH (20:27)
[2016-10-02] MEDS: Pantoprazole 40 MG Tab.CR PO SCH (06:24)
[2016-10-02] MEDS: Aspirin 81 MG Tab.EC PO SCH (06:24)
[2016-10-02] MEDS: Multivitamins,Therapeutic Tab PO SCH (08:20)
[2016-10-02] MEDS: Enoxaparin 40 MG/0.4 ML Syringe SUBCUT SCH (08:20)
[2016-10-02] MEDS: Docusate Sodium 100 MG Cap PO SCH ×2 (08:21→20:22)
[2016-10-02] MEDS: Clopidogrel 75 MG Tab PO SCH (08:21)
[2016-10-02] MEDS: amLODIPine 5 MG Tab PO SCH (08:21)
[2016-10-02] MEDS: Calcium Carbonate/Vitamin D3 1500 MG-200 Units Tab PO SCH (08:21)
[2016-10-02] MEDS: Carvedilol 6.25 MG Tab PO SCH ×2 (08:22→20:21)
[2016-10-02] MEDS: Losartan 100 MG Tab PO SCH (08:23)
--- NOTE | 2016-10-02 09:20 | PCM.PN ---
<Nesha Fu - Last Filed: 10/02/16 09:32> - General Info Date of Service: 10/02/16 Admission Dx/Problem (Free Text): AMS and Frequent Falls Tesha is seen this morning resting in bed. States she is "hungry". Denies c/o pain when asked. Denies SOB, CP. She is pleasantly confused. Resides at [facility]. She requests to be up in the chair. I attempt to assist her OOB, needs 2 assist this morning to get sat up, stand up and direct to sit in chair. Functional Status: Reports: tolerating diet, ambulating (needs 2 assist this am) , urinating (incontinent). Denies: new symptoms - Review of Systems General: Reports: Weakness HEENT: Reports: no symptoms Pulmonary: Reports: no symptoms, wheezing (audible exp wheezing when assissting OOB/with activity) Cardiovascular: Denies: Chest Pain Gastrointestinal: Denies: Abdominal pain Neurological: Reports: Confusion Psychiatric: Reports: confusion - Patient Data Vitals - most recent: Last Vital Signs Temp 98.6 F 10/02/16 03:18 Pulse 77 10/02/16 08:22 Resp 16 10/02/16 03:18 BP 125/90 10/02/16 08:23 Pulse Ox 94 L 10/02/16 03:18 Weight - most recent: 67.404 kg I&O - last 24 hours: Intake & Output 10/01/16 10/02/16 10/02/16 22:59 06:59 14:59 Intake Total 605 400 Output Total 200 Balance 605 200 Lab Results last 24 hrs: Laboratory Results - last 24 hr 10/01/16 10/02/16 10/02/16 Range/Units 10:50 05:51 05:51 WBC 8.57 (3.98-10.04) K/mm3 RBC 4.35 (3.98-5.22) M/mm3 Hgb 12.7 (11.2-15.7) gm/L Hct 39.6 (34.1-44.9) % MCV 91.0 (79.4-94.8) fl MCH 29.2 (25.6-32.2) pg MCHC 32.1 L (32.2-35.5) g/dl RDW Std Deviation 47.7 H (36.4-46.3) fL Plt Count 236 (182-369) K/mm3 MPV 10.3 (9.4-12.3) fl Neut % (Auto) 64.9 (34.0-71.1) % Lymph % (Auto) 13.9 L (19.3-51.7) % [place] % (Auto) 17.6 H (4.7-12.5) % Eos % (Auto) 3.2 (0.7-5.8) Baso % (Auto) 0.2 (0.1-1.2) % Neut # (Auto) 5.56 (1.56-6.13) K/mm3 Lymph # (Auto) 1.19 (1.18-3.74) K/mm3 [place] # (Auto) 1.51 H (0.24-0.36) K/mm3 Eos # (Auto) 0.27 (0.04-0.36) K/mm3 Baso # (Auto) 0.02 (0.01-0.08) K/mm3 Manual Slide Review Normal smear Sodium 139 (136-145) mEq/L Potassium 4.6 (3.5-5.1) mEq/L Chloride 106 (98-107) mEq/L Carbon Dioxide 24 (21-32) mEq/L Anion Gap 13.6 (5-15) BUN 19 H (7-18) mg/dL Creatinine 0.7 (0.55-1.02) mg/dL Est Cr Clr Drug Dosing 47.97 mL/min Estimated GFR (MDRD) > 60 (>60) mL/min BUN/Creatinine Ratio 27.1 H (14-18) Glucose 113 (83-115) mg/dL Calcium 9.0 (8.5-10.1) mg/dL Magnesium 2.1 (1.8-2.4) mg/dl Urine Color Light yellow (Yellow) Urine Appearance Clear (Clear) Urine pH 6.0 (5.0-8.0) Ur Specific [place] 1.010 (1.005-1.030) Urine Protein Negative (Negative) Urine Glucose (UA) Trace H (Negative) Urine Ketones Negative (Negative) Urine Occult Blood Negative (Negative) Urine Nitrite Negative (Negative) Urine Bilirubin Negative (Negative) Urine Urobilinogen 0.2 (0.2-1.0) Ur Leukocyte Esterase Negative (Negative) Urine RBC 0-5 (0-5) /hpf Urine WBC 0-5 (0-5) /hpf Ur Epithelial Cells 0-5 (0-5) /hpf Urine Bacteria Rare (FEW) /hpf Urine Mucus Not seen (FEW) /hpf Med Orders - Current: Current Medications Acetaminophen (Tylenol) 650 mg PO Q4H PRN PRN Reason: Pain (Mild 1-3)/fever Hydrocodone Bitart/Acetaminophen ([place] 325-5 Mg) 1 tab PO Q4H PRN PRN Reason: Pain (moderate 4-6) Last Admin: 09/30/16 00:22 Dose: 1 tab Albuterol/Ipratropium (Duoneb 3.0-0.5 Mg/3 Ml) 3 ml NEB Q4H PRN PRN Reason: Shortness Of Breath/wheezing Amlodipine Besylate (Norvasc) 5 mg PO DAILY [facility] Last Admin: 10/02/16 08:21 Dose: 5 mg Aspirin (Halfprin) 81 mg PO BRK [facility] Last Admin: 10/02/16 06:24 Dose: 81 mg Bisacodyl (Dulcolax) 5 mg PO DAILY PRN PRN Reason: Constipation Calcium Carbonate (Calcium Carbonate/Vitamin D 1500 Mg-200 Unit) 1 tab PO DAILY [facility] Last Admin: 10/02/16 08:21 Dose: 1 tab Carvedilol (Coreg) 6.25 mg PO BID [facility] Last Admin: 10/02/16 08:22 Dose: 6.25 mg Clopidogrel Bisulfate (Plavix) 75 mg PO DAILY [facility] Last Admin: 10/02/16 08:21 Dose: 75 mg Docusate Sodium (Colace) 100 mg PO BID PRN PRN Reason: Constipation Docusate Sodium (Colace) 100 mg PO BID [facility] Last Admin: 10/02/16 08:21 Dose: 100 mg Enoxaparin Sodium (Lovenox) 40 mg SUBCUT DAILY [facility] Last Admin: 10/02/16 08:20 Dose: 40 mg Famotidine (Pepcid) 20 mg PO BID PRN PRN Reason: Heartburn Hydralazine HCl (Apresoline) 10 mg IVPUSH Q4H PRN PRN Reason: Hypertension Last Admin: 09/30/16 00:21 Dose: 10 mg Promethazine HCl 12.5 mg/ (Sodium Chloride) 50.5 mls @ 100 mls/hr IV Q6H PRN PRN Reason: Nausea/Vomiting Azithromycin 500 mg/ Sodium (Chloride) 250 mls @ 250 mls/hr IV Q24H [facility] Stop: 10/03/16 10:59 Losartan Potassium (Cozaar) 100 mg PO DAILY [facility] Last Admin: 10/02/16 08:23 Dose: 100 mg Metoprolol Tartrate (Lopressor) 2.5 mg IVPUSH Q4H PRN PRN Reason: Tachycardia Multivitamins (Thera) 1 each PO DAILY [facility] Last Admin: 10/02/16 08:20 Dose: 1 each Ondansetron HCl (Zofran) 4 mg IV Q6H PRN PRN Reason: Nausea/Vomiting Pantoprazole Sodium (Protonix) 40 mg PO DAILY@0700 [facility] Last Admin: 10/02/16 06:24 Dose: 40 mg Polyethylene Glycol (Miralax) 17 gm PO DAILY PRN PRN Reason: Constipation Saccharomyces Boulardii (Florastor) 250 mg PO BID [facility] Senna/Docusate Sodium (Senna Plus) 1 tab PO BID PRN PRN Reason: Constipation Simvastatin (Zocor) 20 mg PO BEDTIME [facility] Last Admin: 10/01/16 20:27 Dose: 20 mg Temazepam (Restoril) 7.5 mg PO BEDTIME PRN PRN Reason: Sleep Discontinued Medications Bumetanide (Bumex) 0.5 mg IVPUSH ONETIME ONE Stop: 09/29/16 23:01 Last Admin: 09/29/16 23:55 Dose: 0.5 mg Hydromorphone HCl (Dilaudid) 0.25 mg IVPUSH Q2H PRN PRN Reason: Pain (severe 7-10) Ceftriaxone Sodium 2 gm/ (Sodium Chloride) 100 mls @ 200 mls/hr IV ONETIME ONE Stop: 09/29/16 18:52 Last Admin: 09/29/16 19:16 Dose: 200 mls/hr Dextrose/Sodium Chloride (Dextrose 5%-1/2 Ns) 1,000 mls @ 75 mls/hr IV ASDIRECTED [facility] Last Admin: 10/01/16 04:50 Dose: 75 mls/hr Magnesium Sulfate 2 gm/ Premix 50 mls @ 25 mls/hr IV ONETIME ONE Stop: 10/01/16 11:28 Last Admin: 10/01/16 10:02 Dose: 25 mls/hr Levofloxacin/Dextrose 750 mg/ (Premix) 150 mls @ 100 mls/hr IV Q48H [facility] Last Admin: 10/01/16 15:59 Dose: 100 mls/hr Lorazepam (Ativan) 0.25 mg IV Q6H PRN PRN Reason: Anxiety Magnesium Sulfate (Pharmacy To Dose - Magnesium Replacement) 0 dose .XX ASDIRECTED PRN PRN Reason: RX TO MONITOR MAG LEVELS Non-Formulary Medication (Acetaminophen) 500 mg PO Q6HR PRN PRN Reason: Pain Non-Formulary Medication (Alendronate) 70 mg PO Q7D@0600 [facility] Pneumococcal Polyvalent Vaccine (Pneumovax 23) 0.5 ml IM .ONCE ONE Stop: 10/01/16 01:01 Potassium Chloride (Pharmacy To Dose - Potassium Replacement) 0 dose .XX ASDIRECTED PRN PRN Reason: RX TO MONITOR K LEVELS Potassium Chloride (Potassium Chloride Solution) 40 meq PO BID [facility] Stop: 10/01/16 21:01 Last Admin: 10/01/16 20:24 Dose: 40 meq Sodium Chloride (Saline Flush) 10 ml FLUSH ASDIRECTED PRN PRN Reason: Keep Vein Open Last Admin: 09/29/16 17:30 Dose: 10 ml Temazepam (Restoril) 7.5 mg PO BEDTIME PRN PRN Reason: Sleep - Exam Quality Assessment: DVT prophylaxis General: alert, cooperative, no acute distress HEENT: Pupils equal, Pupils reactive, EOMI, Mucous membr. moist/pink Neck: supple Lungs: Normal respiratory effort, Wheezing (exp wheezing wtih activity; ) Cardiovascular: Regular Rate, Regular Rhythm, Murmurs Abdomen: bowel sounds present, soft, no tenderness, no distension (Female) Exam: Deferred Extremities: no calf tenderness, edema (trace; venous insufficiency changes to anterior tibias bilat. No open areas or sores/ulcerations noted.) Peripheral Pulses: 1+: Dorsalis Pedis (L) (trace to 1+ pulses noted), Dorsalis Pedis (R) (trace to 1+ pulses noted) Skin: warm, dry Neurological: normal speech, normal tone, other (pleasantly confused) Psy/Mental Status: alert, other (pleasantly confused) - Problem List & Annotations (1) Bronchitis SNOMED Code(s): 22827075 Code(s): J40 - BRONCHITIS, NOT SPECIFIED ACUTE OR CHRONIC Status: Acute Priority: High Current Visit: Yes (2) Weakness SNOMED Code(s): 04738484 Code(s): R53.1 - WEAKNESS Status: Acute Priority: High Current Visit: Yes (3) Fall at home SNOMED Code(s): 87429235 Code(s): W19.XXXA - UNSPECIFIED FALL, INITIAL ENCOUNTER; Y92.099 - UNSP PLACE IN OTH NON-INSTITUTIONAL RESIDENCE PLACE Status: Acute Priority: High Current Visit: Yes Qualifiers: Encounter type: initial encounter Qualified Code(s): W19.XXXA - Unspecified fall, initial encounter; Y92.099 - Unspecified place in other non- institutional residence as the place of occurrence of the external cause - Problem List Review Problem List Initiated/Reviewed/Updated: Yes - My Orders Last 24 Hours: My Active Orders 10/02/16 09:00 Azithromycin [Zithromax] 500 mg Sodium Chloride 0.9% [Normal Saline] 250 ml IV Q24H 10/02/16 09:15 Saccharomyces Boulardii [Florastor] 250 mg PO BID 10/02/16 Lunch Heart Healthy Diet [DIET] - Plan Plan:: Assessment/Plan: Acute: Encephalopathy/AMS - Likely 2/2 Toxic/metabolic Encephalopathy - CXR and UA not impressive for infection--- Repeat CXR with bronchitis findings - She has medications that can induced alteration: Tramadol and Tizanidine-- meds on hold - Close monitoring Frequent Falls - Likely generalized Weakness; very unsteady and weak this morning - Thyroid Panel--WNL and D Level- pending - PT/OT to assess: gait, balance, stability and ambulation Leukoctyosis ---Resolved Worsening Memory Impairment (Query) - Incomplete records from [facility] - ED notes, states she has Dementia Chronic: HTN-stable HLD GERD OA Osteoporosis Chronic Constipation Sciatica Hx/o CVA/TIA Plan: Admit to the floor Resume Home Meds except narcs or any mind altering drugs Close monitoring Routine AM Labs High Risk Fall PT/OT consult SW/CM for d/c planning Possible SNF/NH placement--strongly recommend SNF placement at this time. Will await PT recommendations today. ANTONIO notified of provider recommendation. Code status: DNR/DNI <Cathy Tillman - Last Filed: 10/03/16 12:01> - Patient Data Vitals - most recent: Last Vital Signs Temp 37.2 C 10/03/16 08:01 Pulse 70 10/03/16 08:16 Resp 12 10/03/16 08:01 BP 150/74 H 10/03/16 08:16 Pulse Ox 93 L 10/03/16 08:01 I&O - last 24 hours: Intake & Output 10/02/16 10/03/16 10/03/16 22:59 06:59 14:59 Intake Total 830 300 0 Output Total 200 125 Balance 630 175 0 Lab Results last 24 hrs: Laboratory Results - last 24 hr 09/30/16 Range/Units 05:58 Vitamin D 25-Hydroxy 19 L (30-100) ng/mL Med Orders - Current: Current Medications Acetaminophen (Tylenol) 650 mg PO Q4H PRN PRN Reason: Pain (Mild 1-3)/fever Hydrocodone Bitart/Acetaminophen ([place] 325-5 Mg) 1 tab PO Q4H PRN PRN Reason: Pain (moderate 4-6) Last Admin: 09/30/16 00:22 Dose: 1 tab Albuterol/Ipratropium (Duoneb 3.0-0.5 Mg/3 Ml) 3 ml NEB Q4H PRN PRN Reason: Shortness Of Breath/wheezing Amlodipine Besylate (Norvasc) 5 mg PO DAILY [facility] Last Admin: 10/03/16 08:16 Dose: 5 mg Aspirin (Halfprin) 81 mg PO BRK [facility] Last Admin: 10/03/16 06:06 Dose: 81 mg Bisacodyl (Dulcolax) 5 mg PO DAILY PRN PRN Reason: Constipation Calcium Carbonate (Calcium Carbonate/Vitamin D 1500 Mg-200 Unit) 1 tab PO DAILY [facility] Last Admin: 10/03/16 08:16 Dose: 1 tab Carvedilol (Coreg) 6.25 mg PO BID [facility] Last Admin: 10/03/16 08:16 Dose: 6.25 mg Clopidogrel Bisulfate (Plavix) 75 mg PO DAILY [facility] Last Admin: 10/03/16 08:16 Dose: 75 mg Docusate Sodium (Colace) 100 mg PO BID PRN PRN Reason: Constipation Docusate Sodium (Colace) 100 mg PO BID [facility] Last Admin: 10/03/16 08:16 Dose: 100 mg Enoxaparin Sodium (Lovenox) 40 mg SUBCUT DAILY [facility] Last Admin: 10/03/16 08:16 Dose: 40 mg Famotidine (Pepcid) 20 mg PO BID PRN PRN Reason: Heartburn Hydralazine HCl (Apresoline) 10 mg IVPUSH Q4H PRN PRN Reason: Hypertension Last Admin: 09/30/16 00:21 Dose: 10 mg Promethazine HCl 12.5 mg/ (Sodium Chloride) 50.5 mls @ 100 mls/hr IV Q6H PRN PRN Reason: Nausea/Vomiting Losartan Potassium (Cozaar) 100 mg PO DAILY [facility] Last Admin: 10/03/16 08:16 Dose: 100 mg Metoprolol Tartrate (Lopressor) 2.5 mg IVPUSH Q4H PRN PRN Reason: Tachycardia Multivitamins (Thera) 1 each PO DAILY [facility] Last Admin: 10/03/16 08:16 Dose: 1 each Ondansetron HCl (Zofran) 4 mg IV Q6H PRN PRN Reason: Nausea/Vomiting Pantoprazole Sodium (Protonix) 40 mg PO DAILY@0700 [facility] Last Admin: 10/03/16 06:06 Dose: 40 mg Polyethylene Glycol (Miralax) 17 gm PO DAILY PRN PRN Reason: Constipation Saccharomyces Boulardii (Florastor) 250 mg PO BID [facility] Last Admin: 10/03/16 08:16 Dose: 250 mg Senna/Docusate Sodium (Senna Plus) 1 tab PO BID PRN PRN Reason: Constipation Simvastatin (Zocor) 20 mg PO BEDTIME [facility] Last Admin: 10/02/16 20:22 Dose: 20 mg Temazepam (Restoril) 7.5 mg PO BEDTIME PRN PRN Reason: Sleep Last Admin: 10/02/16 20:21 Dose: 7.5 mg Discontinued Medications Bumetanide (Bumex) 0.5 mg IVPUSH ONETIME ONE Stop: 09/29/16 23:01 Last Admin: 09/29/16 23:55 Dose: 0.5 mg Hydromorphone HCl (Dilaudid) 0.25 mg IVPUSH Q2H PRN PRN Reason: Pain (severe 7-10) Ceftriaxone Sodium 2 gm/ (Sodium Chloride) 100 mls @ 200 mls/hr IV ONETIME ONE Stop: 09/29/16 18:52 Last Admin: 09/29/16 19:16 Dose: 200 mls/hr Dextrose/Sodium Chloride (Dextrose 5%-1/2 Ns) 1,000 mls @ 75 mls/hr IV ASDIRECTED [facility] Last Admin: 10/01/16 04:50 Dose: 75 mls/hr Magnesium Sulfate 2 gm/ Premix 50 mls @ 25 mls/hr IV ONETIME ONE Stop: 10/01/16 11:28 Last Admin: 10/01/16 10:02 Dose: 25 mls/hr Levofloxacin/Dextrose 750 mg/ (Premix) 150 mls @ 100 mls/hr IV Q48H [facility] Last Admin: 10/01/16 15:59 Dose: 100 mls/hr Azithromycin 500 mg/ Sodium (Chloride) 250 mls @ 250 mls/hr IV Q24H [facility] Stop: 10/03/16 10:59 Last Admin: 10/03/16 09:22 Dose: 250 mls/hr Lorazepam (Ativan) 0.25 mg IV Q6H PRN PRN Reason: Anxiety Magnesium Sulfate (Pharmacy To Dose - Magnesium Replacement) 0 dose .XX ASDIRECTED PRN PRN Reason: RX TO MONITOR MAG LEVELS Non-Formulary Medication (Acetaminophen) 500 mg PO Q6HR PRN PRN Reason: Pain Non-Formulary Medication (Alendronate) 70 mg PO Q7D@0600 [facility] Pneumococcal Polyvalent Vaccine (Pneumovax 23) 0.5 ml IM .ONCE ONE Stop: 10/01/16 01:01 Potassium Chloride (Pharmacy To Dose - Potassium Replacement) 0 dose .XX ASDIRECTED PRN PRN Reason: RX TO MONITOR K LEVELS Potassium Chloride (Potassium Chloride Solution) 40 meq PO BID [facility] Stop: 10/01/16 21:01 Last Admin: 10/01/16 20:24 Dose: 40 meq Sodium Chloride (Saline Flush) 10 ml FLUSH ASDIRECTED PRN PRN Reason: Keep Vein Open Last Admin: 09/29/16 17:30 Dose: 10 ml Temazepam (Restoril) 7.5 mg PO BEDTIME PRN PRN Reason: Sleep - Plan Plan:: SNF likely 10/03/16, agree with above.
[2016-10-02] MEDS: Saccharomyces Boulardii (Probiotic) 250 MG Cap PO SCH ×2 (11:07→20:21)
[2016-10-02] MEDS: Azithromycin 500 MG in Sodium Chloride 0.9% 250 ML IV SCH (11:07)
[2016-10-02] MEDS: Simvastatin 20 MG Tab PO SCH (20:22)
[2016-10-03] MEDS: Aspirin 81 MG Tab.EC PO SCH (06:06)
[2016-10-03] MEDS: Pantoprazole 40 MG Tab.CR PO SCH (06:06)
[2016-10-03] MEDS: Docusate Sodium 100 MG Cap PO SCH (08:16)
[2016-10-03] MEDS: Clopidogrel 75 MG Tab PO SCH (08:16)
[2016-10-03] MEDS: Losartan 100 MG Tab PO SCH (08:16)
[2016-10-03] MEDS: Enoxaparin 40 MG/0.4 ML Syringe SUBCUT SCH (08:16)
[2016-10-03] MEDS: Carvedilol 6.25 MG Tab PO SCH (08:16)
[2016-10-03] MEDS: Calcium Carbonate/Vitamin D3 1500 MG-200 Units Tab PO SCH (08:16)
[2016-10-03] MEDS: amLODIPine 5 MG Tab PO SCH (08:16)
[2016-10-03] MEDS: Saccharomyces Boulardii (Probiotic) 250 MG Cap PO SCH (08:16)
[2016-10-03] MEDS: Multivitamins,Therapeutic Tab PO SCH (08:16)
[2016-10-03 08:17] VITALS: BP 150/74
[2016-10-03] MEDS: Azithromycin 500 MG in Sodium Chloride 0.9% 250 ML IV SCH (09:22)
--- NOTE | 2016-10-03 09:44 | PCM.DCSUM1 ---
<Nesha Fu - Last Filed: 10/03/16 13:21> Discharge Summary - Hospital Course Free Text/Narrative:: THis is an 89 yo elderly white female with past medical hx/o hypercholesterolemia, chronic, constipation, GERD, osteoporosis, sciatica, history of CVA/TIA, who presented to ED for evaluation of generalized weakness and frequent/recurrent falls. Patient is a local resident of [place]. Patient had fallen unwitnessed 3 times a day. Upon admission is currently confused and unable to provide history of present illness. She denies having a chest pain, shortness of breath, abdominal pain, nausea, vomiting, diarrhea, constipation. Her initial workup in emergency department, shows a CBC remarkable for WBC 13.1 , 8, and neutrophils of 60%. INR one, PT 10.9, APTT 26. Her chemistries remarkable for BUN of 19, BS of 136, AST of 13, C-reactive protein of 13.4. Urine culture shows, normal urinary tract infection. Chest x-ray shows No acute changes. Head CT scan report reads senescent change, sinus felt to be incidental, nothing acute is identified. Knee x-rays also unremarkable Patient was admitted for evaluation and management of progressive weakness, confusion and recurrent falls. Her CODE STATUS is DNR/DNI. During hospital stay patient had hacking cough, repeat CXR showed changes consistent with Bronchitis. She was treated with IV Zithromax x 2 days for this , cough did improve. PT/OT worked with patient re: strength and balance which slowly improved. She has baseline confusion, likely dementia. It is recommended by therapies she had SNF placement. Remainder of her hospital stay was unremarkable. B/P was elevated, amlodipine was added to her medication regimen with improvements in blood pressures. Otherwise VSS. Labs were stable. She is discharged today to SNF for rehab stay. She will follow up with Dr. Mott, PCP within 1-2 weeks of discharge. - Discharge Data Discharge Date: 10/03/16 (admit date 09/29/16) Discharge Disposition: DC/Tfer to SNF 03 Condition: Good - Discharge Diagnosis/Problem(s) (1) Bronchitis SNOMED Code(s): 98183632 ICD Code: J40 - BRONCHITIS, NOT SPECIFIED ACUTE OR CHRONIC Status: Acute Priority: High Current Visit: Yes (2) Weakness SNOMED Code(s): 15736797 ICD Code: R53.1 - WEAKNESS Status: Acute Priority: High Current Visit: Yes (3) Fall at home SNOMED Code(s): 57715190 ICD Code: W19.XXXA - UNSPECIFIED FALL, INITIAL ENCOUNTER; Y92.099 - UNSP PLACE IN OTH NON-INSTITUTIONAL RESIDENCE PLACE Status: Acute Priority: High Current Visit: Yes Qualifiers: Encounter type: initial encounter Qualified Code(s): W19.XXXA - Unspecified fall, initial encounter; Y92.099 - Unspecified place in other non- institutional residence as the place of occurrence of the external cause (4) Cognitive impairment SNOMED Code(s): 099198407 ICD Code: R41.89 - [facility] SYMPTOMS AND SIGNS W COGNITIVE FUNCTIONS AND AWARENESS Status: Acute Priority: High Current Visit: Yes Problem Details: likely dementia type (5) Hypertension SNOMED Code(s): 65607444 ICD Code: I10 - ESSENTIAL (PRIMARY) HYPERTENSION Status: Chronic Priority : High Current Visit: Yes Qualifiers: Hypertension type: essential hypertension Qualified Code(s): I10 - Essential (primary) hypertension - Patient Summary/Data Operative Procedure(s) Performed: None Complications: None Consults: Consultations 09/29/16 22:20 Consult to Case Management [CONS] Routine Consult to Group Reservations Coordinator [CONS] Routine Consult to Spiritual Care [CONS] Routine OT Evaluation and Treatment [CONS] Routine PT Evaluation and Treatment [CONS] Routine Respiratory Care Assess and Treatment [CONS] Routine Labs Pending at D/C: None Recommended Follow-up Testing/Procedures: Follow up with PCP, Dr. Mott within 1-2 weeks of discharge Planned Operative Procedure(s) after DC: None Hospital Course: As above - Patient Instructions Diet: Heart Healthy Diet, Drink 8-10+ Glasses/Day Activity: As Tolerated Driving: Do Not Drive Showering/Bathing: May Shower Notify Provider of: Fever, Increased Pain, Swelling and Redness, Nausea and/or Vomiting - Discharge Plan Prescriptions/Med Rec: amLODIPine [Norvasc] 5 mg PO DAILY #30 tablet Home Medications: Home Meds Acetaminophen [Tylenol Extra Strength] 500 mg PO Q6HR PRN 09/29/16 [History] Alendronate [Fosamax] 70 mg PO Q7D@0600 09/29/16 [History] Aspirin [Halfprin] 81 mg PO BRK 09/29/16 [History] Calcium Carbonate/Vitamin D3 [Calcium 600 + Vit D 400 Softgl] 1 tab PO DAILY [History] Carvedilol 6.25 mg PO BID 09/29/16 [History] Clopidogrel [Plavix] 75 mg PO DAILY 09/29/16 [History] Docusate Sodium 100 mg PO BID 09/29/16 [History] Losartan [Cozaar] 100 mg PO DAILY 09/29/16 [History] Multivitamin [Multi-Vitamin Daily] 1 tab PO DAILY 09/29/16 [History] Omeprazole 20 mg PO DAILY 09/29/16 [History] Pravastatin [Pravachol] 40 mg PO DAILY 09/29/16 [History] Ranitidine HCl [Zantac 75] 75 mg PO BID PRN 09/29/16 [History] amLODIPine [Norvasc] 5 mg PO DAILY #30 tablet 10/03/16 [Rx] Patient Handouts: Fall Prevention in the Home, [id number], Clopidogrel tablets, Acute Bronchitis, [id number], Hypertension, [id number], Aspirin, ASA oral tablets, Managing Your High Blood Pressure Referrals: Shayan Mott MD [Primary Care Provider] - 10/12/16 8:10 am - Discharge Summary/Plan Comment DC Time >30 min.: Yes (40 min ) - General Info Date of Service: 10/03/16 Admission Dx/Problem (Free Text: AMS and Frequent Falls Tesha is seen this morning resting in the chair. Pleasantly confused and sleeping. She does open her eyes and answers yes questions. Denies c/o pain. Functional Status: Reports: pain controlled, tolerating diet, ambulating (with 2 assist), urinating (incontinent) - Review of Systems General: Reports: Weakness. Denies: Fever HEENT: Reports: no symptoms Pulmonary: Reports: no symptoms, cough (minimal- improved to resolved). Denies : shortness of breath Cardiovascular: Reports: No Symptoms. Denies: Chest Pain Gastrointestinal: Reports: No symptoms Neurological: Reports: Confusion Psychiatric: Reports: confusion - Patient Data Vitals - Most Recent: Last Vital Signs Temp 99.0 F 10/03/16 08:01 Pulse 70 10/03/16 08:16 Resp 12 10/03/16 08:01 BP 150/74 H 10/03/16 08:16 Pulse Ox 93 L 10/03/16 08:01 Weight - Most Recent: 64.818 kg I&O - Last 24 hours: Intake & Output 10/02/16 10/03/16 10/03/16 22:59 06:59 14:59 Intake Total 830 300 Output Total 200 125 Balance 630 175 Lab Results - Last 24 hrs: Laboratory Results - last 24 hr 09/30/16 Range/Units 05:58 Vitamin D 25-Hydroxy 19 L (30-100) ng/mL Med Orders - Current: Current Medications Acetaminophen (Tylenol) 650 mg PO Q4H PRN PRN Reason: Pain (Mild 1-3)/fever Hydrocodone Bitart/Acetaminophen ([place] 325-5 Mg) 1 tab PO Q4H PRN PRN Reason: Pain (moderate 4-6) Last Admin: 09/30/16 00:22 Dose: 1 tab Albuterol/Ipratropium (Duoneb 3.0-0.5 Mg/3 Ml) 3 ml NEB Q4H PRN PRN Reason: Shortness Of Breath/wheezing Amlodipine Besylate (Norvasc) 5 mg PO DAILY [facility] Last Admin: 10/03/16 08:16 Dose: 5 mg Aspirin (Halfprin) 81 mg PO BRK [facility] Last Admin: 10/03/16 06:06 Dose: 81 mg Bisacodyl (Dulcolax) 5 mg PO DAILY PRN PRN Reason: Constipation Calcium Carbonate (Calcium Carbonate/Vitamin D 1500 Mg-200 Unit) 1 tab PO DAILY [facility] Last Admin: 10/03/16 08:16 Dose: 1 tab Carvedilol (Coreg) 6.25 mg PO BID [facility] Last Admin: 10/03/16 08:16 Dose: 6.25 mg Clopidogrel Bisulfate (Plavix) 75 mg PO DAILY [facility] Last Admin: 10/03/16 08:16 Dose: 75 mg Docusate Sodium (Colace) 100 mg PO BID PRN PRN Reason: Constipation Docusate Sodium (Colace) 100 mg PO BID [facility] Last Admin: 10/03/16 08:16 Dose: 100 mg Enoxaparin Sodium (Lovenox) 40 mg SUBCUT DAILY [facility] Last Admin: 10/03/16 08:16 Dose: 40 mg Famotidine (Pepcid) 20 mg PO BID PRN PRN Reason: Heartburn Hydralazine HCl (Apresoline) 10 mg IVPUSH Q4H PRN PRN Reason: Hypertension Last Admin: 09/30/16 00:21 Dose: 10 mg Promethazine HCl 12.5 mg/ (Sodium Chloride) 50.5 mls @ 100 mls/hr IV Q6H PRN PRN Reason: Nausea/Vomiting Azithromycin 500 mg/ Sodium (Chloride) 250 mls @ 250 mls/hr IV Q24H [facility] Stop: 10/03/16 10:59 Last Admin: 10/03/16 09:22 Dose: 250 mls/hr Losartan Potassium (Cozaar) 100 mg PO DAILY [facility] Last Admin: 10/03/16 08:16 Dose: 100 mg Metoprolol Tartrate (Lopressor) 2.5 mg IVPUSH Q4H PRN PRN Reason: Tachycardia Multivitamins (Thera) 1 each PO DAILY [facility] Last Admin: 10/03/16 08:16 Dose: 1 each Ondansetron HCl (Zofran) 4 mg IV Q6H PRN PRN Reason: Nausea/Vomiting Pantoprazole Sodium (Protonix) 40 mg PO DAILY@0700 [facility] Last Admin: 10/03/16 06:06 Dose: 40 mg Polyethylene Glycol (Miralax) 17 gm PO DAILY PRN PRN Reason: Constipation Saccharomyces Boulardii (Florastor) 250 mg PO BID [facility] Last Admin: 10/03/16 08:16 Dose: 250 mg Senna/Docusate Sodium (Senna Plus) 1 tab PO BID PRN PRN Reason: Constipation Simvastatin (Zocor) 20 mg PO BEDTIME [facility] Last Admin: 10/02/16 20:22 Dose: 20 mg Temazepam (Restoril) 7.5 mg PO BEDTIME PRN PRN Reason: Sleep Last Admin: 10/02/16 20:21 Dose: 7.5 mg Discontinued Medications Bumetanide (Bumex) 0.5 mg IVPUSH ONETIME ONE Stop: 09/29/16 23:01 Last Admin: 09/29/16 23:55 Dose: 0.5 mg Hydromorphone HCl (Dilaudid) 0.25 mg IVPUSH Q2H PRN PRN Reason: Pain (severe 7-10) Ceftriaxone Sodium 2 gm/ (Sodium Chloride) 100 mls @ 200 mls/hr IV ONETIME ONE Stop: 09/29/16 18:52 Last Admin: 09/29/16 19:16 Dose: 200 mls/hr Dextrose/Sodium Chloride (Dextrose 5%-1/2 Ns) 1,000 mls @ 75 mls/hr IV ASDIRECTED [facility] Last Admin: 10/01/16 04:50 Dose: 75 mls/hr Magnesium Sulfate 2 gm/ Premix 50 mls @ 25 mls/hr IV ONETIME ONE Stop: 10/01/16 11:28 Last Admin: 10/01/16 10:02 Dose: 25 mls/hr Levofloxacin/Dextrose 750 mg/ (Premix) 150 mls @ 100 mls/hr IV Q48H [facility] Last Admin: 10/01/16 15:59 Dose: 100 mls/hr Lorazepam (Ativan) 0.25 mg IV Q6H PRN PRN Reason: Anxiety Magnesium Sulfate (Pharmacy To Dose - Magnesium Replacement) 0 dose .XX ASDIRECTED PRN PRN Reason: RX TO MONITOR MAG LEVELS Non-Formulary Medication (Acetaminophen) 500 mg PO Q6HR PRN PRN Reason: Pain Non-Formulary Medication (Alendronate) 70 mg PO Q7D@0600 [facility] Pneumococcal Polyvalent Vaccine (Pneumovax 23) 0.5 ml IM .ONCE ONE Stop: 10/01/16 01:01 Potassium Chloride (Pharmacy To Dose - Potassium Replacement) 0 dose .XX ASDIRECTED PRN PRN Reason: RX TO MONITOR K LEVELS Potassium Chloride (Potassium Chloride Solution) 40 meq PO BID [facility] Stop: 10/01/16 21:01 Last Admin: 10/01/16 20:24 Dose: 40 meq Sodium Chloride (Saline Flush) 10 ml FLUSH ASDIRECTED PRN PRN Reason: Keep Vein Open Last Admin: 09/29/16 17:30 Dose: 10 ml Temazepam (Restoril) 7.5 mg PO BEDTIME PRN PRN Reason: Sleep - Exam Quality Assessment: Reports: DVT prophylaxis General: Reports: alert, cooperative, no acute distress HEENT: Reports: Pupils equal, Pupils reactive, EOMI, Mucous membr. moist/pink Neck: Reports: supple Lungs: Reports: Clear to auscultation, Normal respiratory effort, Decreased breath sounds (bases bilat) Cardiovascular: Reports: Regular Rate, Regular Rhythm Abdomen: Reports: bowel sounds present, soft, no tenderness, no distension (Female) Exam: Deferred Rectal (Female) Exam: Deferred Extremities: Reports: no edema, no calf tenderness Skin: Reports: warm, dry Neurological: Reports: no new focal deficit Psy/Mental Status: Reports: alert, normal affect, normal mood *Q Meaningful Use (DIS) - VTE *Q VTE Criteria *Q: - Stroke *Q Stroke Criteria *Q: - AMI *Q AMI Criteria *Q: <Cathy Tillman - Last Filed: 10/03/16 13:54> Discharge Summary - Hospital Course Free Text/Narrative:: See full DS as above, transfer to SNF today. - Patient Summary/Data Consults: Consultations 09/29/16 22:20 Consult to Case Management [CONS] Routine Consult to Group Reservations Coordinator [CONS] Routine Consult to Spiritual Care [CONS] Routine OT Evaluation and Treatment [CONS] Routine PT Evaluation and Treatment [CONS] Routine Respiratory Care Assess and Treatment [CONS] Routine - Patient Data Vitals - Most Recent: Last Vital Signs Temp 37.2 C 10/03/16 08:01 Pulse 70 10/03/16 08:16 Resp 12 10/03/16 08:01 BP 150/74 H 10/03/16 08:16 Pulse Ox 93 L 10/03/16 08:01 I&O - Last 24 hours: Intake & Output 10/02/16 10/03/16 10/03/16 22:59 06:59 14:59 Intake Total 830 300 0 Output Total 200 125 Balance 630 175 0 Lab Results - Last 24 hrs: Laboratory Results - last 24 hr 09/30/16 Range/Units 05:58 Vitamin D 25-Hydroxy 19 L (30-100) ng/mL Med Orders - Current: Current Medications Acetaminophen (Tylenol) 650 mg PO Q4H PRN PRN Reason: Pain (Mild 1-3)/fever Hydrocodone Bitart/Acetaminophen ([place] 325-5 Mg) 1 tab PO Q4H PRN PRN Reason: Pain (moderate 4-6) Last Admin: 09/30/16 00:22 Dose: 1 tab Albuterol/Ipratropium (Duoneb 3.0-0.5 Mg/3 Ml) 3 ml NEB Q4H PRN PRN Reason: Shortness Of Breath/wheezing Amlodipine Besylate (Norvasc) 5 mg PO DAILY [facility] Last Admin: 10/03/16 08:16 Dose: 5 mg Aspirin (Halfprin) 81 mg PO BRK [facility] Last Admin: 10/03/16 06:06 Dose: 81 mg Bisacodyl (Dulcolax) 5 mg PO DAILY PRN PRN Reason: Constipation Calcium Carbonate (Calcium Carbonate/Vitamin D 1500 Mg-200 Unit) 1 tab PO DAILY [facility] Last Admin: 10/03/16 08:16 Dose: 1 tab Carvedilol (Coreg) 6.25 mg PO BID [facility] Last Admin: 10/03/16 08:16 Dose: 6.25 mg Clopidogrel Bisulfate (Plavix) 75 mg PO DAILY [facility] Last Admin: 10/03/16 08:16 Dose: 75 mg Docusate Sodium (Colace) 100 mg PO BID PRN PRN Reason: Constipation Docusate Sodium (Colace) 100 mg PO BID [facility] Last Admin: 10/03/16 08:16 Dose: 100 mg Enoxaparin Sodium (Lovenox) 40 mg SUBCUT DAILY [facility] Last Admin: 10/03/16 08:16 Dose: 40 mg Famotidine (Pepcid) 20 mg PO BID PRN PRN Reason: Heartburn Hydralazine HCl (Apresoline) 10 mg IVPUSH Q4H PRN PRN Reason: Hypertension Last Admin: 09/30/16 00:21 Dose: 10 mg Promethazine HCl 12.5 mg/ (Sodium Chloride) 50.5 mls @ 100 mls/hr IV Q6H PRN PRN Reason: Nausea/Vomiting Losartan Potassium (Cozaar) 100 mg PO DAILY [facility] Last Admin: 10/03/16 08:16 Dose: 100 mg Metoprolol Tartrate (Lopressor) 2.5 mg IVPUSH Q4H PRN PRN Reason: Tachycardia Multivitamins (Thera) 1 each PO DAILY [facility] Last Admin: 10/03/16 08:16 Dose: 1 each Ondansetron HCl (Zofran) 4 mg IV Q6H PRN PRN Reason: Nausea/Vomiting Pantoprazole Sodium (Protonix) 40 mg PO DAILY@0700 [facility] Last Admin: 10/03/16 06:06 Dose: 40 mg Polyethylene Glycol (Miralax) 17 gm PO DAILY PRN PRN Reason: Constipation Saccharomyces Boulardii (Florastor) 250 mg PO BID [facility] Last Admin: 10/03/16 08:16 Dose: 250 mg Senna/Docusate Sodium (Senna Plus) 1 tab PO BID PRN PRN Reason: Constipation Simvastatin (Zocor) 20 mg PO BEDTIME [facility] Last Admin: 10/02/16 20:22 Dose: 20 mg Temazepam (Restoril) 7.5 mg PO BEDTIME PRN PRN Reason: Sleep Last Admin: 10/02/16 20:21 Dose: 7.5 mg Discontinued Medications Bumetanide (Bumex) 0.5 mg IVPUSH ONETIME ONE Stop: 09/29/16 23:01 Last Admin: 09/29/16 23:55 Dose: 0.5 mg Hydromorphone HCl (Dilaudid) 0.25 mg IVPUSH Q2H PRN PRN Reason: Pain (severe 7-10) Ceftriaxone Sodium 2 gm/ (Sodium Chloride) 100 mls @ 200 mls/hr IV ONETIME ONE Stop: 09/29/16 18:52 Last Admin: 09/29/16 19:16 Dose: 200 mls/hr Dextrose/Sodium Chloride (Dextrose 5%-1/2 Ns) 1,000 mls @ 75 mls/hr IV ASDIRECTED [facility] Last Admin: 10/01/16 04:50 Dose: 75 mls/hr Magnesium Sulfate 2 gm/ Premix 50 mls @ 25 mls/hr IV ONETIME ONE Stop: 10/01/16 11:28 Last Admin: 10/01/16 10:02 Dose: 25 mls/hr Levofloxacin/Dextrose 750 mg/ (Premix) 150 mls @ 100 mls/hr IV Q48H [facility] Last Admin: 10/01/16 15:59 Dose: 100 mls/hr Azithromycin 500 mg/ Sodium (Chloride) 250 mls @ 250 mls/hr IV Q24H [facility] Stop: 10/03/16 10:59 Last Admin: 10/03/16 09:22 Dose: 250 mls/hr Lorazepam (Ativan) 0.25 mg IV Q6H PRN PRN Reason: Anxiety Magnesium Sulfate (Pharmacy To Dose - Magnesium Replacement) 0 dose .XX ASDIRECTED PRN PRN Reason: RX TO MONITOR MAG LEVELS Non-Formulary Medication (Acetaminophen) 500 mg PO Q6HR PRN PRN Reason: Pain Non-Formulary Medication (Alendronate) 70 mg PO Q7D@0600 [facility] Pneumococcal Polyvalent Vaccine (Pneumovax 23) 0.5 ml IM .ONCE ONE Stop: 10/01/16 01:01 Last Admin: 10/03/16 12:33 Dose: 0.5 ml Potassium Chloride (Pharmacy To Dose - Potassium Replacement) 0 dose .XX ASDIRECTED PRN PRN Reason: RX TO MONITOR K LEVELS Potassium Chloride (Potassium Chloride Solution) 40 meq PO BID [facility] Stop: 10/01/16 21:01 Last Admin: 10/01/16 20:24 Dose: 40 meq Sodium Chloride (Saline Flush) 10 ml FLUSH ASDIRECTED PRN PRN Reason: Keep Vein Open Last Admin: 09/29/16 17:30 Dose: 10 ml Temazepam (Restoril) 7.5 mg PO BEDTIME PRN PRN Reason: Sleep *Q Meaningful Use (DIS) - VTE *Q VTE Criteria *Q: - Stroke *Q Stroke Criteria *Q: - AMI *Q AMI Criteria *Q:
[2016-10-06] MEDS ORDERED: Non-Formulary Medication 1 Each (Alendronate 70 MG) PO SCH (06:00)
== END 2016-10-03 13:38 | DRG 93 ==
LOC: JD.ED 16:18 → JD.MS 20:54 → UNDOADMIN 20:54
PROVIDERS: ADMIT Internal Medicine; ATTEND Internal Medicine
PROC: 3E0234Z Introduction of Serum, Toxoid and Vaccine into Muscle, Percutaneous Approach (ICD-10-PCS; principal; 2016-10-03)
DX: G92 Toxic encephalopathy (principal); J40 Bronchitis, not specified as acute or chronic; I10 Essential (primary) hypertension; M25.562 Pain in left knee; M25.561 Pain in right knee; R53.1 Weakness; R29.6 Repeated falls; Z87.891 Personal history of nicotine dependence; W19.XXXA Unspecified fall, initial encounter; Y92.099 Unspecified place in other non-institutional residence as the place of occurrence of the external cause; R41.0 Disorientation, unspecified; F03.90 Unspecified dementia, unspecified severity, without behavioral disturbance, psychotic disturbance, mood disturbance, and anxiety; Z91.81 History of falling; E78.5 Hyperlipidemia, unspecified; K21.9 Gastro-esophageal reflux disease without esophagitis; K59.09 Other constipation; Z86.73 Personal history of transient ischemic attack (TIA), and cerebral infarction without residual deficits; Z66 Do not resuscitate; M81.0 Age-related osteoporosis without current pathological fracture; Z79.82 Long term (current) use of aspirin; Z88.8 Allergy status to other drugs, medicaments and biological substances; Z23 Encounter for immunization
CPT/HCPCS: 36415; 70450; 71010; 73564 ×2; 80053; 81001; 83605; 84484; 85025; 85610; 85730; 86140; 87040 ×2; 87086; 87210; 87808; 93005; 96365; 99285; J0696; J7030; J7050; P9612; 80048; 82306; 83735; 84439; 84443; 87641; 90732; 97116-GP; 97161-GP; 97167-GO; 97530-GO; 97530-GP; 99284; A9270-GY; G0009; J0360; J0456; J1650; J1956; J3475; J7042